=== PATIENT | male | born 1975 | race Caucasian/White ===

== ENCOUNTER 2017-03-02 23:09 | Emergency (ER) | payer SELFPAY ==
[~2017-03-02 23:09] MED LIST: ALBUTEROL17 GM INH; AUGMENTIN PO; DOLOBID500 MG PO; IBUPROFEN PO; KETOPROFEN PO; LORTAB 5/500 TA1 TA1; NO MEDICATIONS; PREDNISONE PO; PREDNISONE5 M1 PO; ROBAXIN500 MG PO; ROBITUSSIN100 MG/52 PO; TESSALON200 MG PO; VICODIN 5/500 T1 TAB PO; VOLTAREN75 MG PO; ZITHROMAX PO; ZITHROMAX1 G/PKT PO
[2017-03-02] MEDS ORDERED: NO MEDICATIONS (23:16)
[2017-03-03] MEDS ORDERED: CLEOCIN PO (00:04)
== END 2017-03-03 00:08 | disposition home or self-care (01) ==
LOC: SED 23:09
DX: L03.311 Cellulitis of abdominal wall (principal); Z88.8 Allergy status to other drugs, medicaments and biological substances; W57.XXXA Bitten or stung by nonvenomous insect and other nonvenomous arthropods, initial encounter; Y92.9 Unspecified place or not applicable
CPT/HCPCS: 99282

== ENCOUNTER 2017-03-24 01:16 | Emergency (ER) | payer OTHER ==
[~2017-03-24 01:16] MED LIST changes: +CLEOCIN PO
== END 2017-03-24 02:16 | disposition home or self-care (01) ==
LOC: SED 01:16
DX: K02.9 Dental caries, unspecified (principal); Z98.890 Other specified postprocedural states; Z88.8 Allergy status to other drugs, medicaments and biological substances
CPT/HCPCS: 99282